=== PATIENT | female | born 1940 | race Asian ===

== ENCOUNTER 2017-03-22 23:10 | Emergency (ER) | payer OTHER ==
[2017-03-23 01:00] VITALS: BP 147/88
== END 2017-03-23 01:00 | disposition home or self-care (01) ==
LOC: ED 23:10
DX: S86.811A Strain of other muscle(s) and tendon(s) at lower leg level, right leg, initial encounter (principal); E03.9 Hypothyroidism, unspecified; I10 Essential (primary) hypertension; E78.5 Hyperlipidemia, unspecified; W18.40XA Slipping, tripping and stumbling without falling, unspecified, initial encounter; Y93.89 Activity, other specified; Y92.89 Other specified places as the place of occurrence of the external cause; Y99.8 Other external cause status
CPT/HCPCS: Q0092